=== PATIENT | male | born 1990 | race Caucasian/White ===

== ENCOUNTER 2016-09-14 15:45 | Emergency (ER) | payer OTHER | END 2016-09-14 20:00 | disposition home or self-care (01) | LOC: ER1 15:45 | DX: Z53.21 Procedure and treatment not carried out due to patient leaving prior to being seen by health care provider (principal) ==

== ENCOUNTER 2016-10-24 23:13 | Emergency (ER) | payer OTHER | END 2016-10-25 01:55 | disposition left against medical advice (07) | LOC: ER1 23:13 | DX: Z53.21 Procedure and treatment not carried out due to patient leaving prior to being seen by health care provider (principal) ==